=== PATIENT | male | born 1975 | race Caucasian/White ===

== ENCOUNTER 2018-02-12 09:07 | Emergency (ER) | payer SELFPAY ==
[2018-02-12] MEDS ORDERED: LIDOCAINE 1% W/ EPINEPHRINE 20 ML VIAL INJ ONE (09:21)
[2018-02-12] MEDS ORDERED: CHLORHEXIDINE GLUCONATE 4 % 15 ML UD TOP ONE (09:22)
[2018-02-12] MEDS ORDERED: ACETAMINOPHEN 325 MG TAB PO ONE (09:59)
--- NOTE | 2018-02-12 10:02 | ED.PDOC ---
History of Present Illness - General Chief Complaint: Laceration Stated Complaint: Laceration above L eye Time Seen by Provider: 02/12/18 09:59 Source: patient Exam Limitations: no limitations - History of Present Illness Initial Comments: Patient presents with a laceration above his left eye. He says he hit his head against a dresser while playing with his kid. No LOC. Has a generalized headaches. Last tetanus less than 5 years ago. No other complaints. Timing/Duration: 1 hour Severity: mild Improving Factors: nothing Worsening Factors: nothing Associated Symptoms: denies symptoms Allergies/Adverse Reactions: Allergies NO KNOWN ALLERGY Allergy (Verified 02/12/18 09:33) Home Medications: Ambulatory Orders NK 02/12/18 Review of Systems - Review of Systems Constitutional: States: no symptoms reported EENTM: States: no symptoms reported Respiratory: States: no symptoms reported Cardiology: States: no symptoms reported Gastrointestinal/Abdominal: States: no symptoms reported Genitourinary: States: no symptoms reported Musculoskeletal: States: no symptoms reported Skin: States: see HPI Neurological: States: no symptoms reported Endocrine: States: no symptoms reported Hematologic/Lymphatic: States: no symptoms reported Past Medical History (General) - Patient Medical History Hx Stroke: No Hx Congestive Heart Failure: No Hx Diabetes: No Hx MRSA: No - Vaccination History Hx Tetanus, Diphtheria Vaccination: Yes - 2014 Hx Influenza Vaccination: No Hx Pneumococcal Vaccination: No - Social History Hx Tobacco Use: No Hx Alcohol Use: No Family Medical History - Family History Father Family History: No Known Living Status: Still Living Physical Exam - Physical Exam General Appearance: Alert Eye Exam: bilateral normal Ears, Nose, Throat: normal ENT inspection Neck: non-tender, full range of motion, supple Respiratory: lungs clear, normal breath sounds Cardiovascular/Chest: normal peripheral pulses, regular rate, rhythm Gastrointestinal/Abdominal: normal bowel sounds, non tender, soft 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 less than 0.5 cm deep. Hemostatic. Lymphatic: no adenopathy Progress - Progress Progress: 02/12/18 10:02 Area was cleaned and prepped in a sterile fashion. 2 cc of lidocaine with epinephrine was used to gain excellent local anesthesia. Wound was irrigated with 3 cc sterile NS. 4 interrupted sutures using 5-0 proline were placed to gain excellent wound edge opposition. Patient was given tylenol 650 mg po x one for his headache. Area was clean dry and hemostatic upon completion. Care instructions given. E.R. warnings given. Questions were elicited and answered. Patient voiced understanding and agreement with the plan. Departure - Departure Clinical Impression: Laceration Disposition: Discharge to Home or Self Care Departure Forms: ED Discharge - Pt. Copy, Patient Portal Self Enrollment Instructions: DI for Laceration Repair, DI for Laceration Repair -- Simple Diet: resume usual diet Activity: increase activity as tolerated Home Medications: Ambulatory Orders NK 02/12/18 Additional Instructions: Apply neosporin to the wound twice per day until healed. Return to your regular doctor in 5 days for suture removal. Use ice to keep swelling down 3 times per day for three days. Tylenol only for pain control.
[2018-02-12 10:18] VITALS: BP 110/74; TEMP 97; O2SAT 96
== END 2018-02-12 10:18 | disposition home or self-care (01) ==
LOC: ER 09:07
DX: S01.81XA Laceration without foreign body of other part of head, initial encounter (principal); W22.09XA Striking against other stationary object, initial encounter; Y93.83 Activity, rough housing and horseplay; Y92.9 Unspecified place or not applicable